=== PATIENT | female | born 1975 | race Caucasian/White ===

== ENCOUNTER 2017-05-20 13:37 | Emergency (ER) | payer MEDICAID ==
--- NOTE | 2017-05-20 14:11 | EDPHY ---
H & P Stated Complaint: ETOH Source: Patient, EMS Exam Limitations: Clinical condition - Personal History LMP (Females 10-55): Unknown Current Tetanus/Diphtheria Vaccine: Unsure Current Tetanus Diphtheria and Acellular Pertussis (TDAP): Unsure - Medical/Surgical History Hx Asthma: No Hx Chronic Respiratory Disease: No Hx Diabetes: No Hx Cardiac Disease: No Hx Renal Disease: No Hx Cirrhosis: No Hx Alcoholism: Yes Hx HIV/AIDS: No Other PMH: unknown, - Family History Significant Family History: No pertinent family hx - Social History Alcohol Use: Sober Drug Use: None Time Seen by Provider: 05/20/17 13:52 HPI/ROS: CHIEF COMPLAINT: Intoxication, suicidality HISTORY OF PRESENT ILLNESS: The patient is a 42-year-old female who came in by EMS as a Laura Stahl. She was reportedly intoxicated and told paramedics and nursing staff that she wanted to . She reports history of depression anxiety and is on several medications but states that she has not taken any of them in the last 3 days. She denies history of schizophrenia or bipolar. She will not answer when asked why she drinks a much today. She denies, ingestants however. REVIEW OF SYSTEMS: Unable to obtain secondary to condition Physical Exam General Appearance: WD/WN, no apparent distress, obtunded (But arousable with painful stimulation) EENT: PERRL/EOMI, normal ENT inspection, TMs normal, pharynx normal Neck: non-tender, full range of motion, supple, normal inspection Respiratory: chest non-tender, lungs clear, normal breath sounds Cardiac/Chest: normal peripheral pulses, regular rate, rhythm, P Peripheral Pulses: 2+: carotid (R), carotid (L), femoral (R), femoral (L), dorsalis-pedis (R), dorsalis-pedis (L) Abdomen: normal bowel sounds, non-tender, soft Extremities: normal range of motion, non-tender, normal inspection, normal capillary refill Neurological: calm, behavioral health clinician II-XII NML as tested. No: alert (Somnolent) Appearance: appropriate appearance, appropriate insight, neat, denies illness Behavior/Eye Contact/Speech: cooperative, decreased rate of speech Thoughts/Hallucinations: normal thought pattern, no apparent hallucination Skin: normal color, warm/dry (Karl Figueroa E) Constitutional: Initial Vital Signs Temperature (C) 36.5 C 05/20/17 13:46 Heart Rate 89 05/20/17 13:46 Respiratory Rate 16 05/20/17 13:46 Blood Pressure 148/79 H 05/20/17 13:46 O2 Sat (%) 98 05/20/17 13:46 O2 Delivery Mode Room Air Allergies/Adverse Reactions: disulfiram [From Antabuse] Allergy (Verified 05/20/17 19:12) Home Medications: Medication Instructions Recorded Citalopram 05/20/17 Gabapentin 05/20/17 Hydroxyzine HCl 05/20/17 Propranolol HCl 05/20/17 busPIRone 05/20/17 traZODone 05/20/17 Medical Decision Making ED Course/Re-evaluation: 0604AM: No acute events overnight. Patient is sleeping. Alcohol level noted to be high upon arrival however metabolize and appropriately. Will need mental health evaluation as she endorses suicidal ideation. Signed over at 7am shift- change to Dr. Lane (Viktor Pereyra) Patient has been evaluated by mental health and felt to be appropriate for outpatient therapy. She has been given resources to follow up with mental health. (Leandro Golden) 7:10 p.m. the patient is complaining withdrawal symptoms. She is slightly tachycardic but no other symptoms. I will give her a mg Ativan. We continue to await psychiatric evaluation. 10:30 p.m. the patient continues to endorse suicidal ideations. She is having some mild withdrawal symptoms. I will treat her with Ativan. We are awaiting sobriety and psychiatric evaluation. Care transferred to Dr. Viktor Pereyra at shift change. (Karl Figueroa) Differential Diagnosis: Partial list of the Differential diagnosis considered include but were not limited to; intoxication, suicidality, alcohol withdrawal and although unlikely based on the history and physical exam, I also considered head injury, infection. (Karl Figueroa) Other Provider: I assumed care of the patient at 7:00am pending psychiatric disposition. The patient remained stable on my shift. She did receive 1 mg of IV Ativan. She will be turned over to Dr. Golden at shift change pending psychiatric disposition. (Nicholas Lane) - Data Points Laboratory Results: Laboratory Results 05/20/17 14:56 05/20/17 14:56 Medications Given: Discontinued Medications Ibuprofen (Motrin) 600 mg PO EDNOW ONE Stop: 05/21/17 11:20 Last Admin: 05/21/17 11:20 Dose: 600 mg Lorazepam (Ativan Injection) 1 mg IVP EDNOW ONE Stop: 05/20/17 19:10 Last Admin: 05/20/17 19:26 Dose: 1 mg Lorazepam (Ativan Injection) 1 mg IVP EDNOW ONE Stop: 05/20/17 22:06 Last Admin: 05/20/17 22:18 Dose: 1 mg Lorazepam (Ativan Injection) 1 mg IVP EDNOW ONE Stop: 05/21/17 03:15 Last Admin: 05/21/17 03:18 Dose: 1 mg Lorazepam (Ativan Injection) 1 mg IVP EDNOW ONE Stop: 05/21/17 09:06 Last Admin: 05/21/17 09:10 Dose: 1 mg Lorazepam (Ativan Injection) 1 mg IVP EDNOW ONE Stop: 05/21/17 14:52 Last Admin: 05/21/17 14:55 Dose: 1 mg Ondansetron HCl (Zofran) 4 mg IVP EDNOW ONE Stop: 05/20/17 18:52 Last Admin: 05/20/17 18:53 Dose: 4 mg Ondansetron HCl (Zofran) 4 mg IVP EDNOW ONE Stop: 05/21/17 03:15 Last Admin: 05/21/17 03:18 Dose: 4 mg Ondansetron HCl (Zofran) 4 mg IVP EDNOW ONE Stop: 05/21/17 09:12 Last Admin: 05/21/17 09:15 Dose: 4 mg Departure - Departure Disposition: Home, Routine, Self-Care Clinical Impression: Alcoholic intoxication Qualifiers: Complication of substance-induced condition: uncomplicated Qualified Code(s): F10.920 - Alcohol use, unspecified with intoxication, uncomplicated Alcohol withdrawal Qualifiers: Complication of substance-induced condition: uncomplicated Qualified Code(s): F10.230 - Alcohol dependence with withdrawal, uncomplicated Condition: Fair Instructions: Alcohol Intoxication (ED) Additional Instructions: Follow up with resources provided by mental health. Continue working on cessation of drinking alcohol. Return for further thoughts of harming yourself or others Referrals: Patient,NotPresent [Unknown] - As per Instructions [facility] [Outside] - As per Instructions
[2017-05-20 15:09] LABS: % IMMATURE GRANULYOCYTES 0.2 % (0.0-1.1); ABSOLUTE IMMATURE GRANULOCYTES 0.02 10^3/uL (0.00-0.10); ADD DIFF? NO; ADD MORPH? NO; ADD SCAN? NO; ATYPICAL LYMPHOCYTE FLAG 0 (0-99); FRAGMENT RBC FLAG 20 (0-99); HEMOGLOBIN 12.6 g/dL (12.6-16.3); LEFT SHIFT FLG 0 (0-99); LIPEMIA HEMOLYSIS FLAG 80 (0-99); MEAN CELL HEMOGLOBIN 25.1 pg (27.9-34.1); MEAN CELL HEMOGLOBIN CONCENTR. 33.2 g/dL (32.4-36.7); MEAN CELL VOLUME 75.7 fL (81.5-99.8); MEAN PLATELET VOLUME 9.5 fL (8.7-11.7); PLATELET CLUMPS FLAG 0 (0-99); PLATELET COUNT 336 10^3/uL (150-400); RED BLOOD CELL COUNT 5.02 10^6/uL (4.18-5.33); RED CELL DISTRIBUTION WIDTH 18.5 % (11.5-15.2)
[2017-05-20 15:22] LABS: ANION GAP 24 mEq/L (8-16); CALCIUM 9.6 mg/dL (8.5-10.4); CARBON DIOXIDE 16 mEq/l (22-31); CHLORIDE 100 mEq/L (97-110); CREATININE 0.8 mg/dL (0.6-1.0); GLOMERULAR FILTRATION RATE > 60; GLUCOSE 103 mg/dL (70-100); POTASSIUM 4.3 mEq/L (3.5-5.2); SALICYLATE < 1.0 mg/dL (2.0-20.0); SODIUM 140 mEq/L (134-144)
[2017-05-20 15:55] LABS: ETHANOL SERUM 517 mg/dL (0-10)
[2017-05-20] MEDS ORDERED: ONDANSETRON 4 MG/2 ML VIAL ONE (18:50)
[2017-05-20] MEDS ORDERED: ONDANSETRON 4 MG/2 ML VIAL IVP ONE (18:51)
[2017-05-20] MEDS ORDERED: LORazepam 2 MG/ML INJ IVP ONE ×2 (19:09→22:05)
[2017-05-21] MEDS ORDERED: ONDANSETRON 4 MG/2 ML VIAL IVP ONE ×2 (03:14→09:11)
[2017-05-21] MEDS ORDERED: LORazepam 2 MG/ML INJ IVP ONE ×3 (03:14→14:51)
[2017-05-21 11:19] VITALS: TEMP 98.8
[2017-05-21] MEDS ORDERED: IBUPROFEN 600 MG TAB PO ONE ×2 (11:19→11:20)
[2017-05-21 17:23] VITALS: BP 152/99; PULSE 95; RESP 18; O2SAT 96
== END 2017-05-21 17:24 | disposition home or self-care (01) ==
LOC: EDBD 13:37
DX: F10.230 Alcohol dependence with withdrawal, uncomplicated (principal)
CPT/HCPCS: 80305; 96374; G0480; J2060; J2405